=== PATIENT | female | born 1945 | race Two or more races ===

== ENCOUNTER 2022-08-28 11:26 | Outpatient (CLI) | payer MEDICARE, OTHER ==
[2022-08-28 12:39] LABS: BASOPHILS % (AUTO) 0.6 % (0.0-2.0); EOSINOPHILS % (AUTO) 1.5 % (0.0-6.0); HEMATOCRIT 30 % (33-45); HEMOGLOBIN 9.7 g/dL (11.5-14.8); LYMPHOCYTES # (AUTO) 1.3 K/uL (0.8-4.8); LYMPHOCYTES % (AUTO) 17.8 % (20.0-44.0); MEAN CORPUSCULAR HGB CONC 32 g/dl (31.0-36.0); MEAN CORPUSCULAR VOLUME 84 fL (82-100); MONOCYTES # (AUTO) 0.3 K/uL (0.1-1.30); MONOCYTES % (AUTO) 4.7 % (2.0-12.0); NEUTROPHILS # (AUTO) 5.6 K/uL (1.8-8.9); NEUTROPHILS % (AUTO) 75.4 % (43.0-81.0); PLATELET COUNT (AUTO) 328 K/uL (150-450); RED BLOOD CELL COUNT(AUTO) 3.61 MIL/uL (4.0-5.2); WHITE BLOOD COUNT (AUTO) 7.4 K/uL (4.3-11.0)
[2022-08-28 13:27] LABS: MAGNESIUM 1.3 mg/dL (1.8-2.4); PHOSPHORUS 4.1 mg/dL (2.5-4.9)
== END 2022-08-28 23:59 | disposition home or self-care (01) ==
LOC: MSC 11:26
PROVIDERS: ATTEND Internal Medicine
DX: N13.9 Obstructive and reflux uropathy, unspecified (principal); I10 Essential (primary) hypertension; E11.9 Type 2 diabetes mellitus without complications; Z79.84 Long term (current) use of oral hypoglycemic drugs; E83.9 Disorder of mineral metabolism, unspecified; M89.9 Disorder of bone, unspecified; I25.10 Atherosclerotic heart disease of native coronary artery without angina pectoris; Z95.5 Presence of coronary angioplasty implant and graft; E78.5 Hyperlipidemia, unspecified; E03.9 Hypothyroidism, unspecified; Z79.890 Hormone replacement therapy
CPT/HCPCS: 80061; 85025; 83735; 83036; 84100; 36415; 82607; G0463

== ENCOUNTER → 2022-08-29 | Outpatient (CLI) | payer MEDICARE, OTHER | END | disposition home or self-care (01) | LOC: MSC 14:00 | PROVIDERS: ATTEND Internal Medicine | DX: N13.9 Obstructive and reflux uropathy, unspecified (principal); E83.9 Disorder of mineral metabolism, unspecified; M89.9 Disorder of bone, unspecified; I25.10 Atherosclerotic heart disease of native coronary artery without angina pectoris; E11.9 Type 2 diabetes mellitus without complications; Z79.84 Long term (current) use of oral hypoglycemic drugs; I10 Essential (primary) hypertension; Z95.5 Presence of coronary angioplasty implant and graft; E78.5 Hyperlipidemia, unspecified; E03.9 Hypothyroidism, unspecified; Z79.890 Hormone replacement therapy ==

== ENCOUNTER → 2022-09-03 | Outpatient (CLI) | payer MEDICARE, OTHER | END | disposition home or self-care (01) | LOC: MSC 14:00 | PROVIDERS: ATTEND Internal Medicine | DX: N13.9 Obstructive and reflux uropathy, unspecified (principal); N35.92 Unspecified urethral stricture, female; E11.9 Type 2 diabetes mellitus without complications; Z79.84 Long term (current) use of oral hypoglycemic drugs; I10 Essential (primary) hypertension; E83.9 Disorder of mineral metabolism, unspecified; M89.9 Disorder of bone, unspecified; I25.10 Atherosclerotic heart disease of native coronary artery without angina pectoris; Z95.5 Presence of coronary angioplasty implant and graft; E78.5 Hyperlipidemia, unspecified; E03.9 Hypothyroidism, unspecified; Z79.890 Hormone replacement therapy ==

== ENCOUNTER → 2022-09-04 | Outpatient (CLI) | payer MEDICARE, OTHER | END | disposition home or self-care (01) | LOC: MSC 15:00 | PROVIDERS: ATTEND Internal Medicine | DX: N13.9 Obstructive and reflux uropathy, unspecified (principal); N35.92 Unspecified urethral stricture, female; E11.9 Type 2 diabetes mellitus without complications; Z79.84 Long term (current) use of oral hypoglycemic drugs; I10 Essential (primary) hypertension; E83.9 Disorder of mineral metabolism, unspecified; M89.9 Disorder of bone, unspecified; I25.10 Atherosclerotic heart disease of native coronary artery without angina pectoris; Z95.5 Presence of coronary angioplasty implant and graft; E78.5 Hyperlipidemia, unspecified; E03.9 Hypothyroidism, unspecified; Z79.890 Hormone replacement therapy ==